=== PATIENT | female | born 1975 | race African-American/Black ===

== ENCOUNTER 2017-06-25 21:03 | Emergency (ER) | payer OTHER ==
[~2017-06-25] VITALS: Ht 177.8 cm; Wt 113.0 kg
[2017-06-25 21:15] VITALS: BP 132/70
== END 2017-06-25 23:50 | disposition left against medical advice (07) ==
LOC: ER 22:06
DX: M54.2 Cervicalgia (principal); Z53.21 Procedure and treatment not carried out due to patient leaving prior to being seen by health care provider